=== PATIENT | female | born 1990 | race Caucasian/White ===

== ENCOUNTER 2021-04-12 10:39 | Emergency (ER) | payer OTHER, SELFPAY ==
[2021-04-12 11:02] VITALS: BP 108/73; PULSE 68; RESP 18; TEMP 36.8; O2SAT 97
[2021-04-12] MEDS: ONDANSETRON HCL ODT 4 MG TABLET PO ×2 (11:17→11:30)
--- NOTE | 2021-04-12 11:19 | ED.NAVMDI ---
HPI - Nausea/Vomiting/Diarrhea General Chief complaint: Nausea/Vomiting/Diarrhea Stated complaint: Nausea,Vomiting,Headache Source: patient Mode of arrival: ambulatory Limitations: no limitations History of Present Illness HPI Narrative: Patient is a 30-year-old female who presents with sudden onset of nausea and vomiting this a.m. She denies abdominal pain. She denies diarrhea. She denies fever, chills or urinary complaints. Patient is vaccinated for Covid x2. Patient also reports that she is tested weekly with rapid negative Covid on 04/10. Patient reports she took penicillin this a.m. on an empty stomach. Patient reports she has been being treated for dental pain and infection with penicillin. She denies all other complaints at this time. Patient denies significant medical history. Related Data Allergies Allergy/AdvReac Type Severity Reaction Status Date / Time No Known Allergies Allergy Verified 04/12/21 11:27 Review of Systems Review of Systems: CONSTITUTIONAL: Denies fever, chills, or sweats. EYES: Denies visual changes, redness, or discharge. ENT: Denies rhinorrhea, congestion, sore throat, or otalgia. CARDIOVASCULAR: Denies chest pain, palpitations, or edema. RESPIRATORY: Denies cough or dyspnea. GASTROINTESTINAL: Reports nausea and vomiting GENITOURINARY: Denies dysuria or hematuria. SKIN: Denies rash or itching. MUSCULOSKELETAL: Denies back pain, joint pain, or myalgia. NEUROLOGIC: Denies headache, numbness, dizziness, or weakness. PSYCHIATRIC: Denies anxiety or depression. [facility] Past Medical History Medical History No significant past medical history Surgical History Surgical History No significant past surgical history Family History Family History (Updated 04/12/21 @ 11:27 by PREMA King) Other No significant family history Social History Social History (Updated 04/12/21 @ 11:38 by PREMA King) Smoking status: Never smoker Alcohol intake: never Substance use: never Living arrangements: with family Occupation/Education: occupation Comments At the time of signature, I have reviewed and agree with nursing past medical, surgical, social, and family history unless otherwise noted. Please see nursing chart for further information. There is no relevant family history pertinent to the presenting complaint. Exam Narrative: GENERAL: Well-appearing, well-nourished, and in no acute distress. HEAD: Normocephalic, atraumatic. EYES: EOMI. No redness or drainage. Conjunctiva are normal. ENT: Mucous membranes pink and moist. CHEST: No respiratory distress. HEART: Regular rate and rhythm. GI: Soft, nontender without rebound, or guarding. No distention. MUSCULOSKELETAL: No bony tenderness. EXTREMITIES: Normal range of motion. SKIN: Warm, dry, no rash. NEURO: No focal deficits. Alert and oriented x3. Gait steady. PSYCH: Normal affect. No signs of depression or anxiety. Course Vital Signs Vital signs: Vital Signs Temperature 36.8 C 04/12/21 11:02 Pulse Rate 68 04/12/21 11:02 Respiratory Rate 18 04/12/21 11:02 Blood Pressure 108/73 04/12/21 11:02 Pulse Oximetry 97 04/12/21 11:02 Temperature 36.8 C 04/12/21 11:02 Pulse Rate 68 04/12/21 11:02 Respiratory Rate 18 04/12/21 11:02 Blood Pressure 108/73 04/12/21 11:02 Pulse Oximetry 97 04/12/21 11:02 Reviewed MDM - Nausea/Vomiting/Diarrhea MDM Narrative Medical decision making narrative: Patient's rapid Covid is negative. Patient's nausea and vomiting are most likely caused by penicillin. Patient feels better after 8 mg of Zofran given in urgent care. Discussed with patient to call her dentist about penicillin. Patient also given prescription for Zofran. Patient is aware if she develops further symptoms that she may need reevaluation. Patient agrees with plan o
--- NOTE | 2021-04-12 14:14 | PC.NURSE ---
1155-Pt no longer nauseated. Tolerating sprite without issues.
--- NOTE | 2021-04-12 14:19 | PC.NURSE ---
1127-Pt reports nausea better but still present. Orders received from provider.
== END 2021-04-12 11:58 | disposition home or self-care (01) ==
PROVIDERS: Emergency Provider Nurse Practitioner
DX: R11.2 Nausea with vomiting, unspecified (principal); T36.0X5A Adverse effect of penicillins, initial encounter; Z20.822 Contact with and (suspected) exposure to COVID-19
CPT/HCPCS: 81003; 81025; 87426; 99213; A9270; C9803; G0463

== ENCOUNTER 2021-06-13 15:38 | Emergency (ER) | payer OTHER, SELFPAY ==
[2021-06-13 16:03] VITALS: BP 97/64; PULSE 100; RESP 18; TEMP 36.6; O2SAT 100
[2021-06-13] MEDS: LIDOCAINE/PRILOCAINE CREAM 2.5-2.5% TUBE 1 EACH TOPICAL (16:15)
--- NOTE | 2021-06-13 17:10 | ED.EAR ---
HPI - Ear Problem General Chief complaint: Ear Stated complaint: knot on lt ear Source: patient and RN notes reviewed Limitations: no limitations History of Present Illness HPI Narrative: The patient, previously mostly healthy, presents with skin eruption. Patient states she has had sporadic rashes in her underarms, ear, etc. Now she has 1/2-week history of left ear swelling at the helical myron. No body piercings there, fever, spontaneous discharge, redness, streaking; Symptoms are mild worse with palpation Related Data Allergies Allergy/AdvReac Type Severity Reaction Status Date / Time No Known Allergies Allergy Verified 06/13/21 16:30 Review of Systems Review of Systems: General/Constitutional: No weight loss,fever Eyes: N0: Redness,discharge Ears/Nose/Throat: No: Epistaxis,ear discharge Respiratory: Denies: Hemoptysis Gastrointestinal: No Vomiting, Bleeding-rectal Skin: REPORTS lumps, eruption Neurologic: No Focal Weakness,Sz Hematologic: Denies: Petechiae/Purpura Psychiatric: No: Suicida ideationl All Other Systems: Reviewed and Negative PMFSH Past Medical History Medical History No significant past medical history Surgical History Surgical History No significant past surgical history Family History Family History (Updated 04/12/21 @ 11:27 by PREMA King) Other No significant family history Social History Social History (Updated 04/12/21 @ 11:38 by PREMA King) Smoking status: Never smoker Alcohol intake: never Substance use: never Comments At time of signature, agree with nursing past medical, surgical, social and family history. There is no relevant family history pertinent to the presenting complaint Exam Narrative: General Appearance: Well appearing, Well nourished, No distress EYE: PERRLA , EOMI EAR: Small 1 cm abscess of the helical myron otherwise external ear normal, Auditory canal normal Nose: Normal nose, Nares clear Mouth/Throat: Normal appearing, Normal lips, Supple, No adenopathy Respiratory: Airway patent, No respiratory distress Skin: Warm, Dry Neurological: A&O x3 Normal affect Course Vital Signs Vital signs: Vital Signs Temperature 97.9 F 06/13/21 16:03 Pulse Rate 100 06/13/21 16:03 Respiratory Rate 18 06/13/21 16:03 Blood Pressure 97/64 L 06/13/21 16:03 Pulse Oximetry 100 06/13/21 16:03 Temperature 97.9 F 06/13/21 16:03 Pulse Rate 100 06/13/21 16:03 Respiratory Rate 18 06/13/21 16:03 Blood Pressure 97/64 L 06/13/21 16:03 Pulse Oximetry 100 06/13/21 16:03 Procedures Abscess I/D face: Date of Incision: 06/13/21 Side (if applicable): left Local Anesthetic: other anesthetic (EMLA) Technique: needle aspiration Irrigation: No Packing used?: none I&D Results: Pus Medical Decision Making Vital Signs Vital Signs: Vital Signs Temperature 97.9 F 06/13/21 16:03 Pulse Rate 100 06/13/21 16:03 Respiratory Rate 18 06/13/21 16:03 Blood Pressure 97/64 L 06/13/21 16:03 Pulse Oximetry 100 06/13/21 16:03 Temperature 97.9 F 06/13/21 16:03 Pulse Rate 100 06/13/21 16:03 Respiratory Rate 18 06/13/21 16:03 Blood Pressure 97/64 L 06/13/21 16:03 Pulse Oximetry 100 06/13/21 16:03 Discharge Plan Discharge Clinical Impression: Abscess Patient Disposition: Home, Self-Care Condition: Improved Instructions: Antibiotic Form, MRSA (Methicillin-Resistant Staphylococcus Aureus) (ED), Hidradenitis Suppurativa (ED) Additional Instructions: Review handouts, also consider reviewing/googling Decolonization of MRSA Prescriptions: New sulfamethoxazole-trimethoprim [Bactrim DS] 800-160 mg tablet 1 tablet PO Q12H 7 Days Qty: 10 RF: 0 mupirocin 2 % ointment 1 applic TOPICAL TID Qty: 30 RF: 2 Follow-
== END 2021-06-13 17:08 | disposition home or self-care (01) ==
PROVIDERS: Emergency Provider Emergency Medicine; PCP Hospitalist
DX: H60.02 Abscess of left external ear (principal)
CPT/HCPCS: 10160; 87070; 87205; 99213; G0463

== ENCOUNTER 2021-07-16 14:55 | Emergency (ER) | payer OTHER, SELFPAY ==
[2021-07-16 15:22] VITALS: BP 108/65; PULSE 94; RESP 18; TEMP 36.8; O2SAT 97
--- NOTE | 2021-07-16 16:08 | ED.URI ---
HPI - URI/Sore Throat General Chief Complaint: Upper Respiratory Infection Stated Complaint: cough,sorethroat,fatigue Time Seen by Provider: 07/16/21 16:00 Source: patient and RN notes reviewed Mode of arrival: ambulatory Limitations: no limitations History of Present Illness HPI Narrative: Patient presents today complaining of 3 to 4-hour history of sore throat, body aches, headache, congestion and fatigue. States her symptoms came on all of a sudden, but are not severe. She currently rates her sore throat 5/10 and has tried no medication for her symptoms prior to arrival. 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 MD elicited complaint: sore throat and nasal congestion Related Data Home Medications Medication Instructions Recorded Confirmed No Home Medications 07/16/21 07/16/21 Allergies Allergy/AdvReac Type Severity Reaction Status Date / Time gluten Allergy Unknown Verified 07/16/21 15:38 Review of Systems Review of Systems: CONSTITUTIONAL: Denies fever, chills, or sweats.+ Body aches EYES: Denies visual changes, redness, or discharge. ENT: Denies rhinorrhea, or otalgia.+ Congestion, sore throat CARDIOVASCULAR: Denies chest pain, palpitations, or edema. RESPIRATORY: Denies cough or dyspnea. GASTROINTESTINAL: Denies abdominal pain, nausea, vomiting, or diarrhea. GENITOURINARY: Denies dysuria or hematuria. SKIN: Denies rash, itching, or wounds. MUSCULOSKELETAL: Denies back pain, joint pain, or myalgia. NEUROLOGIC: Denies numbness, tingling, or weakness.+ Headache PSYCH: Denies depression or anxiety. PMFSH Past Medical History Medical History No significant past medical history Surgical History Surgical History No significant past surgical history Family History Family History Other No significant family history Social History Social History Smoking status: Never smoker Alcohol intake: never Substance use: never Comments At time of signature, I have reviewed and agree with nursing past medical, surgical, social and family history unless otherwise noted. Please see nursing chart for further information. There is no relevant family history pertinent to the presenting complaint Exam Narrative: GENERAL: Well-appearing, well-nourished, and in no acute distress. HEAD: Normocephalic, atraumatic. EYES: EOMI. No redness or drainage. Conjunctivae normal. ENT: Mucous membranes pink and moist. Nares clear. No rhinorrhea. TMs normal bilaterally. Throat mildly erythematous without edema or exudate. Uvula midline. NECK: Normal AROM. Supple. No lymphadenopathy. CHEST: No respiratory distress. Clear to auscultation. HEART: Regular rate and rhythm. No murmur appreciated. Normal peripheral pulses. EXTREMITIES: Normal range of motion. No edema. SKIN: Warm, dry, no rash. Capillary refill normal. Normal skin turgor. NEURO: No focal deficits. Alert and oriented x3. Gait steady. PSYCH: Normal affect. No signs of depression or anxiety. Course Course Emergency Course: I discussed rapid strep results with patient and the fact that it was too early to perform a rapid COVID test on her, but that it would be a good idea that she have a COVID-19 test performed in a couple of days based on her symptoms. Discussed that she likely had a viral illness, possibly covid and to treat with OTC medication. Patient then states, Where am I supposed to get a test? I'm not leaving here until I get a test. I can't go back to work without a test and I can't go back to my boss and tell them I have a virus. That's unacceptable! I sat here for 2 hours, paid $200 and you only did 1 thing for me and you're going to tell me I have a virus and tell me to leave! When I e
== END 2021-07-16 16:35 | disposition home or self-care (01) ==
PROVIDERS: Emergency Provider Nurse Practitioner; PCP Hospitalist
DX: J06.9 Acute upper respiratory infection, unspecified (principal)
CPT/HCPCS: 87081; 87880; 99213; G0463

== ENCOUNTER 2021-07-18 11:33 | Emergency (ER) | payer OTHER, SELFPAY ==
[2021-07-18 11:41] VITALS: BP 109/72; PULSE 93; RESP 16; TEMP 36.4; O2SAT 100
--- NOTE | 2021-07-18 12:57 | ED.URI ---
HPI - URI/Sore Throat General Chief Complaint: Upper Respiratory Infection Stated Complaint: HALL/BODY ACHES/CHILLS Time Seen by Provider: 07/18/21 12:55 Source: patient, RN notes reviewed and old records reviewed Mode of arrival: ambulatory Limitations: no limitations History of Present Illness HPI Narrative: 30-year-old female who presents to [facility] with complaints of symptoms since Thursday which have included some chest tightness, cough, chills, no fevers, sore throat, and headache..Patient was seen in [facility] and had strep test which was negative and culture also is noted negative. Patient reports that she has had COVID vaccine but no flu vaccine. Related Data Home Medications Medication Instructions Recorded Confirmed levonorgestrel [Mirena] 1 insert INTRAUTERINE ONCE 07/18/21 07/18/21 Allergies Allergy/AdvReac Type Severity Reaction Status Date / Time gluten Allergy Unknown Verified 07/18/21 13:49 Review of Systems Review of Systems: CONSTITUTIONAL: Denies fever,some chills, or sweats. EYES: Denies visual changes, redness, or discharge. ENT: Positive for rhinorrhea, congestion, sore throat, no otalgia. CARDIOVASCULAR:Reports chest tightness with cough,no palpitations, or edema. RESPIRATORY: Positive for cough no dyspnea. GASTROINTESTINAL: Denies abdominal pain, nausea, vomiting, or diarrhea. GENITOURINARY: Denies dysuria or hematuria. SKIN: Denies rash or itching. MUSCULOSKELETAL: Denies back pain, joint pain,positive for body aches. NEUROLOGIC:Positive for headache, no numbness, or weakness, reports fatigue PSYCHIATRIC: Positive for anxiety or depression. All systems reviewed & are unremarkable except as noted in HPI and below PMFSH Past Medical History Medical History Anxiety and depression Hx of migraines Ovarian cyst Surgical History Surgical History No significant past surgical history Family History Family History Other No significant family history Social History Social History (Updated 07/19/21 @ 07:30 by Candelaria Sevilla NP) Smoking status: Never smoker Alcohol intake: never Substance use: never Living arrangements: with family Gender identity (if verbalized by the patient): Female Comments At time of signature, agree with nursing past medical, surgical, social and family history. There is no relevant family history pertinent to the presenting complaint Exam Narrative: GENERAL: Well-appearing, well-nourished, and in no acute distress.anxious HEAD: Normocephalic, atraumatic. EYES: PERRLA and EOMI. ENT: Nares patent with clear rhinorrhea no epistaxis. Mucous membranes moist.TM's normal with good light reflex, throat red with no lesions or exudates no tonsil enlargement but red NECK: Supple.no lymphadenopathy CHEST: Clear to auscultation. No respiratory distress.cough, SAO2 100% on room air HEART: Regular rate and rhythm. No murmur heard. Normal peripheral pulses. ABDOMEN: Soft, nontender, nondistended, normal active bowel sounds. EXTREMITIES: Normal range of motion. No edema. SKIN: Warm, dry, no rash. NEURO: No focal deficits. Alert and oriented x3. Course Course Level of Care: Express Care Visit Vital Signs Vital signs: Vital Signs Temperature 36.4 C 07/18/21 11:41 Pulse Rate 93 07/18/21 11:41 Respiratory Rate 16 07/18/21 11:41 Blood Pressure 109/72 07/18/21 11:41 Pulse Oximetry 100 07/18/21 11:41 Temperature 36.4 C 07/18/21 11:41 Pulse Rate 93 07/18/21 11:41 Respiratory Rate 16 07/18/21 11:41 Blood Pressure 109/72 07/18/21 11:41 Pulse Oximetry 100 07/18/21 11:41 MDM - URI/Sore Throat Differential Diagnosis Differential diagnosis: Likely upper respiratory infection, sinusitis, viral infection, pharyngitis and other (Strep pharyngitis,screen for Covi
[2021-07-19 22:11] LABS: SARS-CoV-2 RNA PCR Negative
== END 2021-07-18 14:05 | disposition home or self-care (01) ==
PROVIDERS: Emergency Provider Registered Nurse
DX: J06.9 Acute upper respiratory infection, unspecified (principal); Z20.822 Contact with and (suspected) exposure to COVID-19
CPT/HCPCS: 87426; 99211; C9803; G0463; U0003; U0005